=== PATIENT | female | born 1955 ===

== ENCOUNTER → 2017-09-25 | Outpatient (CLI) | payer MEDICARE, BC ==
[~2017-09-25] MED LIST: ALB18R IH; AMOX-362 PO; AMOX-559 PO; AMOX875T60 PO; ASPI-1471 PO; ASPI-715 PO; BIPAP; BUPR-156 PO; CEF300 PO; CEFT1VIA52 IM; CHOL200074 PO; CPAP; CYAN250013 PO; DIA5 PO; DICL100G39 TOP; ESCI20TA38 PO; ESCI20TA8 PO; ESOM40CA42 PO; FISH1CAP15 PO; FLU60SYR30 IM ONLY; FLUT1DIS27 IH; FLUT9.9S IH; GABA-549 PO; GOLYTE PO; HYDR-393 PO; HYDR-4305 PO; HYDR12.558 PO; HYDR12.561 PO; LACT1CAP6 PO; LEVO750T44 PO; LOSA-51 PO; LOSA-57 PO; LOSA100T62 PO; LOSA100T67 PO; LOSA50TA72 PO; MELO-149 PO; MET500 PO; META800T18 PO; METF-410 PO; MULT-770 PO; NOR10/325 PO; OMEG-97 PO; OXYC-823 PO; OXYC-827 PO; OXYC-870 PO; OXYC10TA67 PO; PANT40SU3 PO; PRED20TA6 PO; ROS10 PO; ROSU5TAB8 PO; TRAZ-156 PO; TRAZ-163 PO; Test Strips MC; UBID100C9 PO; UBID200C21 PO; VITA-134 PO; VITA-175 PO; [UNRECOGNIZED DRUG - CODE] IM; [UNRECOGNIZED DRUG - CODE] PO; [UNRECOGNIZED DRUG - CODE] TD
== END ==
LOC: LAB 15:46
PROVIDERS: ATTEND Nurse Practitioner Family
DX: E11.9 Type 2 diabetes mellitus without complications (principal)
CPT/HCPCS: 36415; 83036

== ENCOUNTER → 2017-11-06 | Outpatient (CLI) | payer MEDICARE, BC | LOC: RESP 21:07 | PROVIDERS: ATTEND Nurse Practitioner Family | DX: Z02.9 Encounter for administrative examinations, unspecified (principal) ==

== ENCOUNTER → 2017-12-09 | Outpatient (CLI) | payer MEDICARE, BC ==
[~2017-12-09] MED LIST changes: +DOXY-181 PO
--- NOTE | 2017-12-09 17:33 | RADIOLOGY IMAGING REPORT ---
FACILITY: [facility] [place] PATIENT NAME: Tammi Tejada : 1955 MR: [id number] V: [id number] EXAM DATE: ORDERING PHYSICIAN: MALIK GALAN TECHNOLOGIST: Location: [facility] Patient: Tammi Tejada : 1955 Visit/Account:[id number] Date of Sevice: 12/09/2017 Exam type: HIP RIGHT History: right posterior lateral hip pain Comparison: None. Findings: Two views of the right hip reveal no gross evidence of acute fracture or dislocation. There are post surgical changes of the lower lumbar spine. A battery pack and electrodes project over the left uppe r pelvis and left paraspinal region. IMPRESSION: 1. No evidence of acute fracture-dislocation involving the right hip Report Dictated By: Marla Quiñonez MD at 12/09/2017 5:26 PM Report E-Signed By: Marla Quiñonez MD at 12/09/2017 5:27 PM WSN:[email or web address]
== END ==
LOC: RAD 16:48
PROVIDERS: ATTEND Nurse Practitioner Family
DX: Z98.890 Other specified postprocedural states (principal); Z96.89 Presence of other specified functional implants

== ENCOUNTER 2018-02-10 00:37 | Day surgery (SDC) | payer MEDICARE, BC ==
[~2018-02-10] VITALS: Ht 162.6 cm; Wt 93.0 kg
[2018-02-10] VITALS (9 sets, daily range): BP systolic 114–141; BP diastolic 61–82
[~2018-02-10 00:37] MED LIST changes: +DULO30CA6 PO; +DULO60CA56 PO; +FAMOTIDINE 20 MG TAB PO ONE; +LIDOCAINE/SOD BICARB 8.4% SYR ID ONE; -METF-410 PO; +METF-411 PO; +MIDAZOLAM 2 MG/2 ML VIAL IVP ONE; +MIDAZOLAM 2 MG/2 ML VIAL IVP PRN; +NORMOSOL R SOLN(*) 1000 ML BAG 1,000 ML IV PRN; +OXYC15TA79 PO
[2018-02-10] MEDS ORDERED: GLYCOPYRROLATE 0.2MG/ML 1 ML INJ IVP ONE (06:25)
[2018-02-10] MEDS ORDERED: LIDO/EPI 1% MDV 1:100,000 20ML INFIL ONE (06:42)
[2018-02-10] MEDS ORDERED: LIDOCAINE MPF 1% 5 ML VIAL ONE (07:04)
[2018-02-10] MEDS ORDERED: PROPOFOL EMUL(*) 10MG/ML 20 ML 60 ML ONE (07:04)
[2018-02-10] MEDS ORDERED: ALBUTEROL/IPRATROPIUM 3 ML NEB ONE (07:13)
[2018-02-10] MEDS ORDERED: NORMOSOL R SOLN(*) 1000 ML BAG 1,000 ML IV PRN (07:15)
[2018-02-10] MEDS ORDERED: LIDOCAINE/SOD BICARB 8.4% SYR ID ONE (07:15)
[2018-02-10] MEDS ORDERED: BACITRACIN OINT 0.9 GM PKT TP ONE (07:24)
--- NOTE | 2018-02-10 08:32 | Short(Outpt) Discharge Summary ---
Discharge Summary Reason for Hosp/Final Diag: (1) Family history of gastric cancer Hospital Course & Plan: Excision of skin lesion from back and EGD with biopsies completed without problems. (2) Epigastric abdominal pain Status: Chronic (3) History of gastric ulcer Status: Chronic Departure Discharge to: Home, Self Care Discharge Instructions Home Meds Active Scripts Duloxetine Hcl (CYMBALTA) 60 Mg Capsule.dr, 1 TAB PO DAILY, #30 TAB 0 Refills Start after completing 1 week of 30 tabs Prov:MALIK GALAN APRN-C 01/25/18 Oxycodone Hcl 15 Mg Tab (OXYCODONE HCL 15 MG TAB) 15 Mg Tablet, 1 TAB PO QID, # 120 TAB 0 Refills Prov:MALIK GALAN APRN-C 01/14/18 Losartan Potassium (LOSARTAN POTASSIUM) 100 Mg Tablet, 1 TAB PO QDAY, #90 TAB 1 Refill Prov:MALIK GALAN APRN-C 10/19/17 Albuterol Sulfate (VENTOLIN HFA) 18 Gm Inh, 2 PUFF IH QID Y for WHEEZING, #1 INHALER 1 Refill Prov:MALIK GALAN APRN-C 07/07/17 Fluticasone/Salmeterol (ADVAIR 100-50 DISKUS) 1 Each Disk.w.dev, 1 PUFF IH BID, #1 DISK 5 Refills Prov:MALIK GALAN APRN-C 07/07/17 Bipap Home (BIPAP HOME) Inha, EACH, #1 Prov:MALIK GALAN APRN-C 06/17/17 Rosuvastatin Calcium (CRESTOR) 10 Mg Tab, 1 TAB PO QDAY, #90 TAB 2 Refills Prov:MALIK GALAN APRNP-C 05/04/17 Esomeprazole Magnesium (NEXIUM) 40 Mg Capsule.dr, 1 CAP PO QDAY, #90 CAP 3 Refills Prov:MALIK GALAN APRN-C 04/17/17 Diclofenac Sodium 1% Gel (VOLTAREN 1% GEL) 100 Gm Gel..gram., 2 GM TOP TID Y for PAIN, #100 GM 3 Refills Prov:MALIK GALAN APRN-C 03/06/17 Metformin Hcl (METFORMIN HCL) 500 Mg Tablet, 1 TAB PO DAILY, #90 TAB 1 Refill Prov:MALIK GALAN APRN DATA INTEGRATION ANALYST-C 03/04/17 [Test Strips] No Conflict Check, STRIP MC, #100 0 Refills Prov:MALIK GALAN APRN DATA INTEGRATION ANALYST-C 11/10/14 Reported Medications Cyanocobalamin (Vitamin B-12) (Vitamin B12) 2,500 Mcg Tab.chew, 1000 MCG PO QDAY 06/10/17 Lactobacillus Combination No.4 (PROBIOTIC) 1 Each Capsule, 1 EACH PO QDAY, CAPSULE 05/06/17 Aspirin (ASPIR 81) 81 Mg Tablet.dr, 1 TAB PO QDAY, TAB 10/11/14 Multivits W-Fe,Other Min/Lut (CENTRUM SILVER ULTRA WOMEN TAB) 1 Each Tablet, 1 EACH PO DAILY 10/11/14 Fish Oil/Dha/Epa (FISH OIL 1,200 MG FISH OIL) 1 Each Capsule, 2 CAP PO DAILY, CAPSULE 10/11/14 Ubidecarenone (CO Q-10) 200 Mg Capsule, 1 CAP PO DAILY, CAPSULE 10/11/14 Cholecalciferol (Vitamin D3) (VITAMIN D-3) 2,000 Unit Capsule, 1 CAP PO DAILY, CAPSULE 10/11/14 Discontinued Scripts Duloxetine HCl (Duloxetine HCl) 30 Mg Capsule.dr, 1 CAP PO DAILY, #7 CAP 0 Refills Prov:MALIK GALAN GAIL BLEVINSP-C 01/25/18 Follow up Referrals: General Surgery - 02/22/18 @ Surgery, General with Lida Munguia Md You have a follow up appointment scheduled with Dr. Munguia on 02/22/18, at 4:30pm. Diet: Diabetic Activity: As Tolerated Special Instructions: Your stomach was full of food which is possibly and indication of a gastric emptying problem called gastroparesis which may be related to diabetic neuropathy. My nurse will call you and schedule you for a gastric emptying study and I'll see you back in my office on February 22, to remove your sutures and discuss all of these results with you. LIDA MUNGUIA MD Feb 10, 2018 08:32
--- NOTE | 2018-02-10 13:40 | OPERATIVE REPORT 1 ---
EVENT DATE: February 10, 2018 SURGEON: Jordon Callejas MD ANESTHESIOLOGIST: Newton Prieto MD ANESTHESIA: TIVA with local anesthetic in conjunction with her upper GI endoscopy. PREOPERATIVE DIAGNOSIS Pigmented skin lesion on right upper back. POSTOPERATIVE DIAGNOSIS Pigmented skin lesion on right upper back. PROCEDURE PERFORMED Excision of pigmented skin lesion from right upper back. INDICATIONS This is a 62-year-old female who presented to my office with actually upper abdominal pain and was requesting an upper endoscopy to evaluate this, but also incidentally noted a skin lesion on her back that was interfering with her right bra strap. she wanted to have it removed at the same time. PROCEDURE Patient was brought to the endoscopy suite and placed in the left lateral decubitus position on the table. Her right upper back was prepped and draped in sterile fashion. time out was completed, and the skin around the lesion was anesthetized with 1% lidocaine with epinephrine. I made a 13 mm long x 9 mm wide elliptical incision to encompass the lesion with grossly negative margin, dissected through the dermis and subcutaneous fat, undermined the ellipse and passed off the field. The wound was made hemostatic with pressure and closed with running 3-0 nylon sutures. Skin was cleaned, dried, and bacitracin was applied to the incision then sutures, and then this was covered with a sterile surgical dressing. The patient tolerated this procedure without any problems, and then we proceeded with the upper GI endoscopy. Please refer to the upper GI endoscopy report for details about that. [facility]ITAL[facility]
== END 2018-02-10 09:55 | disposition home or self-care (01) ==
LOC: OR 00:37
PROVIDERS: ATTEND Surgery
DX: K29.70 Gastritis, unspecified, without bleeding (principal); K25.9 Gastric ulcer, unspecified as acute or chronic, without hemorrhage or perforation
CPT/HCPCS: 36416; 43239; 82948; 87077; 88305; 88344; 94640; A9270; J2001; J2704; J3490; J7620; C9399

== ENCOUNTER → 2018-02-26 | Outpatient (CLI) | payer MEDICARE, BC ==
[~2018-02-26] MED LIST changes: -FAMOTIDINE 20 MG TAB PO ONE; -LIDOCAINE/SOD BICARB 8.4% SYR ID ONE; -MIDAZOLAM 2 MG/2 ML VIAL IVP ONE; -MIDAZOLAM 2 MG/2 ML VIAL IVP PRN; -NORMOSOL R SOLN(*) 1000 ML BAG 1,000 ML IV PRN
--- NOTE | 2018-02-27 03:20 | RADIOLOGY IMAGING REPORT ---
FACILITY: [facility] PATIENT NAME: Tammi Tejada : 1955 MR: [id number] V: [id number] EXAM DATE: ORDERING PHYSICIAN: LIDA MUNGUIA TECHNOLOGIST: Location: [facility] Patient: Tammi Tejada : 1955 Visit/Account:[id number] Date of Sevice: 02/26/2018 GASTRIC EMPTYING STUDY DATE OF SERVICE: 02/26/2018 08:02 INDICATION: Epigastric pain. Reported history of ulcer and family history of gastric cancer. COMPARISON: None RADIOPHARMACEUTICAL: 2.1 mCi of Tc-99m sulfur colloid mixed in egg. PROTOCOL: Egg mixed with the radiopharmaceutical as well as two pieces of toast and 4 oz of water wa s ingested by the patient over 10 minutes minutes. Immediately after ingestion, planar static imaging of the anterior and posterior abdomen with the patient in the upright position was performed. Region s of interest were placed over the stomach and percent retention was calculated using the geometric m demetris. FINDINGS: The stomach size and contour are unremarkable. No reflux was demonstrated. The T 1/2 of gastric empt roxana is roughly 54 minutes, and emptying is complete by 236 minutes. These are within normal limits. IMPRESSION: Normal. Report Dictated By: Lee Duke MD at 02/27/2018 2:55 AM Report E-Signed By: Lee Duke MD at 02/27/2018 3:03 AM WSN:[email or web address]
== END ==
LOC: NUC 02-19 08:03
PROVIDERS: ATTEND Surgery
DX: R10.13 Epigastric pain (principal); Z80.0 Family history of malignant neoplasm of digestive organs; Z87.19 Personal history of other diseases of the digestive system
CPT/HCPCS: 78264; A9541

== ENCOUNTER → 2018-03-02 | Outpatient (CLI) | payer MEDICARE, BC ==
[2018-03-02 15:14] LABS: PLATELET COUNT, AUTOMATED 265 K/uL (150-450)
[2018-03-02 15:28] LABS: LDL CHOLESTEROL 39 mg/dl
== END ==
LOC: LAB 14:41
PROVIDERS: ATTEND Nurse Practitioner Family
DX: Z11.59 Encounter for screening for other viral diseases (principal); I10 Essential (primary) hypertension; E11.9 Type 2 diabetes mellitus without complications; E78.5 Hyperlipidemia, unspecified
CPT/HCPCS: 36415; 83036; 84443; 85025; G0472; 82040; 82247; 82310; 82374; 82435; 82465; 82565; 82947; 83718; 84075; 84132; 84155; 84295; 84450; 84460; 84478; 84520; 86803

== ENCOUNTER → 2018-11-15 | Outpatient (CLI) | payer MEDICARE, BC ==
[~2018-11-15] MED LIST changes: +ALBU1.257 IH; +CELE-1 PO; +CITA-137 PO; +DOXY-179 PO; +ESCI10TA8 PO; -HYDR-4305 PO; +HYDR-627 PO; +HYDR50CA48 PO; -LOSA100T67 PO; +LOSA100T75 PO; -LOSA50TA72 PO; +LOSA50TA80 PO; -METF-411 PO; +METF-450 PO; +METF500T4 PO; +METH4TAB66 PO; +OSE75 PO; +OXYC30TA79 PO; +PREG100C44 PO; +ROSU10TA PO; +SERT-184 PO; -TRAZ-156 PO; -TRAZ-163 PO; +TRAZ100T31 PO; +TRAZ50TA34 PO
[2018-11-15 16:53] LABS: PLATELET COUNT, AUTOMATED 271 K/uL (150-450)
--- NOTE | 2018-11-15 17:25 | RADIOLOGY IMAGING REPORT ---
FACILITY: [facility] [place] PATIENT NAME: Tammi Tejada : 1955 MR: [id number] V: [id number] EXAM DATE: ORDERING PHYSICIAN: MALIK GALAN TECHNOLOGIST: Location: [facility] Patient: Tammi Tejada : 1955 Visit/Account:[id number] Date of Sevice: 11/15/2018 Exam type: CHEST PA LAT History: hypoxia, shortness of breath and cough Comparison: November 23, 2016. Findings: There is mild chronic peribronchial thickening bilaterally. There is no evidence of focal infiltrate s, pleural effusions or pulmonary edema. Cardiac silhouette is normal in size. There is a spinal el ectrode projecting over the thoracic spine IMPRESSION: 1. Mild chronic peribronchial thickening although no evidence of acute pulmonary consolidation Report Dictated By: Marla Quiñonez MD at 11/15/2018 5:20 PM Report E-Signed By: Marla Quiñonez MD at 11/15/2018 5:22 PM WSN:[email or web address]
== END ==
LOC: LAB 16:01
PROVIDERS: ATTEND Nurse Practitioner Family
DX: E11.9 Type 2 diabetes mellitus without complications (principal); R91.8 Other nonspecific abnormal finding of lung field; F41.0 Panic disorder [episodic paroxysmal anxiety]; R09.02 Hypoxemia
CPT/HCPCS: 36415; 71046; 82040; 82247; 82310; 82374; 82435; 82565; 82947; 83036; 84075; 84132; 84155; 84295; 84443; 84450; 84460; 84520; 85025; 86140